=== PATIENT | female | born 2000 | race Two or more races ===

== ENCOUNTER 2019-01-12 16:34 | Emergency (ER) | payer BC ==
[~2019-01-12] VITALS: Ht 162.6 cm; Wt 54.4 kg
[2019-01-12] MEDS ORDERED: PNEU16DI2 (17:04)
== END 2019-01-12 21:03 | disposition home or self-care (01) ==
LOC: ER 16:34
DX: B34.9 Viral infection, unspecified (principal)

== ENCOUNTER 2020-12-30 13:00 | Inpatient (IN) | payer BC, OTHER ==
[~2020-12-30] VITALS: Ht 162.6 cm; Wt 72.1 kg
[~2020-12-30 13:00] MED LIST: PNEU16DI2
[2020-12-30] MEDS ORDERED: IRON236 MG PO (14:10)
[2020-12-30] MEDS ORDERED: PRENATAL TABLE1 EAC1 PO (14:10)
== END 2021-01-02 12:57 | disposition home or self-care (01) | DRG 833 ==
LOC: LDR 13:00 → OB/GYN 13:00
PROVIDERS: ADMIT Obstetrics & Gynecology; ATTEND Obstetrics & Gynecology
PROC: 4A1HXFZ Monitoring of Products of Conception, Cardiac Rhythm, External Approach (ICD-10-PCS; principal; 2020-12-30)
DX: O47.03 False labor before 37 completed weeks of gestation, third trimester (principal); Z3A.35 35 weeks gestation of pregnancy; Z20.822 Contact with and (suspected) exposure to COVID-19

== ENCOUNTER 2021-01-05 14:03 | Outpatient (CLI) | payer OTHER ==
[~2021-01-05 14:03] MED LIST changes: +IRON236 MG PO; +PRENATAL TABLE1 EAC1 PO
== END 2021-01-06 08:58 | disposition home or self-care (01) ==
LOC: OBS/DEL 14:03
PROVIDERS: ATTEND Obstetrics & Gynecology
DX: O26.843 Uterine size-date discrepancy, third trimester (principal); O36.8193 Decreased fetal movements, unspecified trimester, fetus 3

== ENCOUNTER 2021-01-19 06:07 | Inpatient (IN) | payer BC, OTHER ==
[~2021-01-19] VITALS: Ht 162.6 cm; Wt 72.6 kg
== END 2021-01-21 09:49 | disposition home or self-care (01) | DRG 807 ==
LOC: LDR 06:07 → OB/GYN 06:07
PROVIDERS: ADMIT Obstetrics & Gynecology; ATTEND Obstetrics & Gynecology
PROC: 10E0XZZ Delivery of Products of Conception, External Approach (ICD-10-PCS; principal; 2021-01-19)
PROC: 10907ZC Drainage of Amniotic Fluid, Therapeutic from Products of Conception, Via Natural or Artificial Opening (ICD-10-PCS; 2021-01-19)
PROC: 4A1HXFZ Monitoring of Products of Conception, Cardiac Rhythm, External Approach (ICD-10-PCS; 2021-01-19)
DX: O80 Encounter for full-term uncomplicated delivery (principal); Z37.0 Single live birth; Z3A.39 39 weeks gestation of pregnancy; Z20.822 Contact with and (suspected) exposure to COVID-19

== ENCOUNTER 2024-12-30 11:35 | Emergency (ER) | payer BC, OTHER ==
[~2024-12-30] VITALS: Ht 162.6 cm; Wt 63.5 kg
[2024-12-30] MEDS ORDERED: PRENATA CHEWAB1 EACH (11:58)
[2024-12-30] MEDS ORDERED: FAMOTIDINE/PF 20 MG/2 ML VIAL ONE (12:13)
[2024-12-30] MEDS ORDERED: ONDANSETRON HCL 2 MG/ML VIAL ONE (12:13)
[2024-12-30] MEDS ORDERED: ONDANSETRON HCL 2 MG/ML VIAL IV ONE (12:15)
[2024-12-30] MEDS ORDERED: 0.9 % SODIUM CHLORIDE 1,000 ML IV ONE (12:15)
[2024-12-30] MEDS ORDERED: FAMOtidine 10 MG/ML (4ML VIAL) IV ONE (12:15)
[2024-12-30] MEDS ORDERED: ACETAMINOPHEN 500 MG GEL..CAP PO ONE ×2 (12:41→13:15)
[2024-12-30 12:55] LABS: HEMATOCRIT 38.1 % (36.0-45.00); HEMOGLOBIN 13.4 g/dL (12.0-15.00); MEAN CELL VOLUME 88.2 fL (80.00-100.00); MEAN CORPUSCULAR HEMOGLOBIN 30.9 pg (27.00-32.0); PLATELET COUNT 233 K/uL (150-450); RED BLOOD COUNT 4.32 M/uL (4.00-6.00); RED CELL DISTRIBUTION WIDTH 12.9 % (11.5-14.5)
[2024-12-30 13:19] LABS: BILIRUBIN TOTAL 0.55 mg/dL (0.3-1.2); CALCIUM 9.3 mg/dL (8.5-10.1); CREATININE SERUM 0.59 mg/dL (0.55-1.02); GFR 124.19; GLOBULINA 4.3 G/DL (2.4-3.5); POTASSIUM 3.69 mEq/L (3.5-5.1); TOTAL PROTEIN 8.3 gm/dL (6.4-8.2)
[2024-12-30] MEDS ORDERED: PEPCID AC20 MG PO (14:45)
[2024-12-30] MEDS ORDERED: ZOFRAN8 MG PO (14:45)
== END 2024-12-30 15:02 | disposition home or self-care (01) ==
LOC: ER 11:37
PROVIDERS: General Practice
DX: R11.2 Nausea with vomiting, unspecified (principal); R19.7 Diarrhea, unspecified; R10.9 Unspecified abdominal pain; Z20.822 Contact with and (suspected) exposure to COVID-19; Z91.018 Allergy to other foods

== ENCOUNTER 2025-05-22 17:45 | Outpatient (CLI) | payer OTHER ==
[2025-05-22 16:54] VITALS: BP 112/70
[~2025-05-22 17:45] MED LIST changes: +PEPCID AC20 MG PO; +PRENATA CHEWAB1 EACH; +ZOFRAN8 MG PO
[2025-05-22] MEDS ORDERED: TERBUTALINE SULFATE 1 MG/ML AMPUL SUBCUTANEO SCH (18:00)
[2025-05-22] MEDS ORDERED: RINGERS SOLUTION,LACTATED 1,000 ML IV SCH (18:00)
[2025-05-22 18:23] LABS: URINE APPEARANCE Clear; URINE BILIRRUBIN Negative (NEGATIVE); URINE BLOOD Negative; URINE COLOR Yellow; URINE GLUCOSE Negative (NEGATIVE); URINE KETONE Trace (NEGATIVE); URINE LEUKOCYTE Moderate; URINE NITRATE Negative; URINE PROTEIN Negative (NEGATIVE); URINE UROBILINOGEN 1.0 E.U./dl
[2025-05-22 18:26] LABS: URINE BACTERIA 3151.0 uL (0.0-1933); URINE EPITHELIAL CELLS 86.9 uL (0.0-38.8); URINE WBC 66.0 uL (0.0-23.2)
[2025-05-22 18:27] LABS: BASO % 0.1 % (0.1-1.2); EOS # 0.00 (0.04-0.54); EOS % 0.0 % (0.7-7.0); LYMPH # 0.65 (1.18-3.74); LYMPH % 9.4 % (19.3-53.1); MEAN PLATELET VOLUME 11.10 fl (9.4-12.4); MONO # 0.77 (0.24-0.82); MONO % 11.1 % (4.7-12.5); NEUT # 5.46 (1.56-6.13); NEUT % 78.7 % (34.0-71.1); RED CELL DISTRIBUTION WIDTH 12.4 % (11.6-14.4)
[2025-05-22 18:38] LABS: URINE CAST 0.29 uL (0.0-1.40); URINE RBC 1.1 uL (0.0-20.8)
[2025-05-22 18:49] LABS: BUN CREA RATIO 14.0 (7.0-25.0); CREATININE SERUM 0.35 mg/dL (0.55-1.02); GFR 226.88; GLUCOSE FASTING 87.0 mg/dL (65-100); OSMOLALITY SERUM 278.0 MOSM/KG (275-295)
[2025-05-22] MEDS ORDERED: CEFAZOLIN SODIUM 1,000 MG VIAL IV SCH (20:00)
[2025-05-22] MEDS ORDERED: SOD FERRIC GLUC COMPLX/SUCROSE 62.5 MG in 0.9 % SODIUM CHLORIDE 50 ML IV SCH (21:00)
[2025-05-22 23:34] VITALS: BP 103/62
[2025-05-23 03:25] VITALS: BP 98/55
[2025-05-23 06:32] VITALS: BP 90/60; O2SAT 98
[2025-05-23 10:45] VITALS: BP 90/60
== END 2025-05-23 11:09 | disposition home or self-care (01) ==
LOC: OBS/DEL 17:45
PROVIDERS: ATTEND Obstetrics & Gynecology
DX: O26.892 Other specified pregnancy related conditions, second trimester (principal); O26.849 Uterine size-date discrepancy, unspecified trimester; O36.8199 Decreased fetal movements, unspecified trimester, other fetus; O60.00 Preterm labor without delivery, unspecified trimester; Z3A.27 27 weeks gestation of pregnancy

== ENCOUNTER 2025-07-23 17:38 | Outpatient (CLI) | payer OTHER ==
[2025-07-23 16:19] VITALS: BP 127/75
[~2025-07-23 17:38] MED LIST changes: +TERBUTALINE SULFATE 1 MG/ML AMPUL ONE
[2025-07-23] MEDS ORDERED: TERBUTALINE SULFATE 1 MG/ML AMPUL SUBCUTANEO SCH (17:45)
[2025-07-23] MEDS ORDERED: RINGERS SOLUTION,LACTATED 1,000 ML IV SCH (18:00)
[2025-07-23 18:14] LABS: BASO % 0.2 % (0.1-1.2); EOS # 0.05 (0.04-0.54); EOS % 0.6 % (0.7-7.0); LYMPH # 1.52 (1.18-3.74); LYMPH % 17.0 % (19.3-53.1); MEAN PLATELET VOLUME 11.00 fl (9.4-12.4); MONO # 0.62 (0.24-0.82); MONO % 6.9 % (4.7-12.5); NEUT # 6.68 (1.56-6.13); NEUT % 74.9 % (34.0-71.1); RED CELL DISTRIBUTION WIDTH 13.8 % (11.6-14.4); URINE APPEARANCE Turbid; URINE BILIRRUBIN Negative (NEGATIVE); URINE BLOOD Negative; URINE COLOR Yellow; URINE GLUCOSE Negative (NEGATIVE); URINE KETONE Trace (NEGATIVE); URINE LEUKOCYTE Negative; URINE NITRATE Negative; URINE PROTEIN Negative (NEGATIVE); URINE UROBILINOGEN 1.0 E.U./dl
[2025-07-23 18:16] LABS: URINE BACTERIA 11.9 uL (0.0-1933); URINE EPITHELIAL CELLS 6.3 uL (0.0-38.8); URINE RBC 10.1 uL (0.0-20.8); URINE WBC 14.3 uL (0.0-23.2)
[2025-07-23 18:17] LABS: URINE CAST 0.00 uL (0.0-1.40)
[2025-07-23] MEDS ORDERED: IRON18 M1 PO (18:29)
[2025-07-23 18:46] LABS: ALT/SGPT 13.0 U/L (12-78); AST/SGOT 13.0 U/L (15-37); BILIRUBIN TOTAL 0.4 mg/dL (0.3-1.2); BUN CREA RATIO 8.0 (7.0-25.0); CREATININE SERUM 0.38 mg/dL (0.55-1.02); GFR 204.71; GLOBULINA 3.5 G/DL (2.4-3.5); GLUCOSE FASTING 94.0 mg/dL (65-100); OSMOLALITY SERUM 281.0 MOSM/KG (275-295)
[2025-07-23 19:53] VITALS: BP 112/64
[2025-07-23 23:24] VITALS: BP 102/67
[2025-07-24 03:16] VITALS: BP 129/85
[2025-07-24 07:15] VITALS: BP 115/69
[2025-07-24] MEDS ORDERED: SOD FERRIC GLUC COMPLX/SUCROSE 62.5 MG/5 ML AMPUL IV ONE (08:37)
[2025-07-24] MEDS ORDERED: SOD FERRIC GLUC COMPLX/SUCROSE 125 MG in 0.9 % SODIUM CHLORIDE 100 ML IV SCH (09:00)
[2025-07-24 11:11] VITALS: BP 116/65; O2SAT 100
[2025-07-24 13:56] VITALS: BP 116/65
== END 2025-07-24 14:11 | disposition home or self-care (01) ==
LOC: OBS/DEL 17:38
PROVIDERS: ATTEND Obstetrics & Gynecology
DX: O26.893 Other specified pregnancy related conditions, third trimester (principal); R10.2 Pelvic and perineal pain; Z3A.35 35 weeks gestation of pregnancy

== ENCOUNTER 2025-08-12 10:29 | Inpatient (IN) | payer BC, OTHER ==
[~2025-08-12] VITALS: Ht 162.6 cm; Wt 75.7 kg
[2025-08-12 10:02] VITALS: BP 118/59
[~2025-08-12 10:29] MED LIST changes: +IRON18 M1 PO; -TERBUTALINE SULFATE 1 MG/ML AMPUL ONE
[2025-08-12] MEDS ORDERED: RINGERS SOLUTION,LACTATED 1,000 ML IV SCH (11:00)
[2025-08-12 11:13] LABS: BASO % 0.1 % (0.1-1.2); EOS # 0.03 (0.04-0.54); EOS % 0.4 % (0.7-7.0); LYMPH # 1.69 (1.18-3.74); LYMPH % 21.7 % (19.3-53.1); MEAN PLATELET VOLUME 11.90 fl (9.4-12.4); MONO # 0.51 (0.24-0.82); MONO % 6.5 % (4.7-12.5); NEUT # 5.52 (1.56-6.13); NEUT % 70.8 % (34.0-71.1); RED CELL DISTRIBUTION WIDTH 13.7 % (11.6-14.4)
[2025-08-12 11:13] LABS: URINE APPEARANCE Clear; URINE BILIRRUBIN Negative (NEGATIVE); URINE BLOOD Negative; URINE COLOR Yellow; URINE GLUCOSE Negative (NEGATIVE); URINE KETONE Negative (NEGATIVE); URINE LEUKOCYTE Small; URINE NITRATE Negative; URINE PROTEIN Negative (NEGATIVE); URINE UROBILINOGEN 0.2 E.U./dl
[2025-08-12 11:16] LABS: URINE BACTERIA 795.5 uL (0.0-1933); URINE EPITHELIAL CELLS 73.9 uL (0.0-38.8); URINE RBC 2.4 uL (0.0-20.8); URINE WBC 88.1 uL (0.0-23.2)
[2025-08-12 11:46] LABS: URINE CAST 0.00 uL (0.0-1.40)
[2025-08-12 15:24] VITALS: BP 132/72
[2025-08-12] MEDS ORDERED: AMPICILLIN SODIUM 2,000 MG VIAL IV ONE (17:00)
[2025-08-12 17:25] VITALS: BP 118/59
[2025-08-12 18:19] LABS: INR 0.96
[2025-08-12 18:24] LABS: ALT/SGPT 14.0 U/L (12-78); AST/SGOT 17.0 U/L (15-37); BILIRUBIN TOTAL 0.7 mg/dL (0.3-1.2); BUN CREA RATIO 12.0 (7.0-25.0); CREATININE SERUM 0.34 mg/dL (0.55-1.02); GFR 232.74; GLOBULINA 3.4 G/DL (2.4-3.5); GLUCOSE FASTING 65.0 mg/dL (65-100); OSMOLALITY SERUM 274.0 MOSM/KG (275-295)
[2025-08-12] MEDS ORDERED: MORPHINE SULFATE 4 MG/ML CARTRIDGE IV PRN (19:00)
[2025-08-12] MEDS ORDERED: AMPICILLIN SODIUM 1,000 MG VIAL IV SCH (21:00)
[2025-08-12 23:04] VITALS: BP 117/60
[2025-08-13 03:25] VITALS: BP 114/71
[2025-08-13] MEDS ORDERED: CHLORHEXIDINE GLUCONATE 120 ML BOTTLE TOP ONE (10:35)
[2025-08-13] MEDS ORDERED: ERYTHROMYCIN BASE OPHT 1GM EACH TUBE OP ONE (10:35)
[2025-08-13] MEDS ORDERED: OXYTOCIN 20 UNITS/1000ML RL PIGGYBAG IV ONE (10:35)
[2025-08-13] MEDS ORDERED: LIDOCAINE HCL 1% 10ML VIAL ONE (10:36)
[2025-08-13 13:34] VITALS: BP 119/72
[2025-08-13 16:17] VITALS: BP 128/76
[2025-08-13 16:58] LABS: BASO % 0.1 % (0.1-1.2); EOS # 0.00 (0.04-0.54); EOS % 0.0 % (0.7-7.0); LYMPH # 1.07 (1.18-3.74); LYMPH % 7.4 % (19.3-53.1); MEAN PLATELET VOLUME 12.20 fl (9.4-12.4); MONO # 0.59 (0.24-0.82); MONO % 4.1 % (4.7-12.5); NEUT # 12.79 (1.56-6.13); NEUT % 87.9 % (34.0-71.1); RED CELL DISTRIBUTION WIDTH 13.4 % (11.6-14.4)
[2025-08-13 23:52] VITALS: BP 119/79
[2025-08-14 08:14] VITALS: BP 115/76
[2025-08-14 16:31] VITALS: BP 116/76
[2025-08-15 00:36] VITALS: BP 119/75
[2025-08-15 08:40] VITALS: BP 124/79; O2SAT 100
== END 2025-08-15 14:18 | disposition home or self-care (01) | DRG 807 ==
LOC: OBS/DEL 10:29 → LDR 18:12 → OB/GYN 18:12 → LDR 08-13 01:39 → OB/GYN 08-13 11:34
PROVIDERS: ADMIT Obstetrics & Gynecology; ATTEND Obstetrics & Gynecology
PROC: 4A1HXCZ Monitoring of Products of Conception, Cardiac Rate, External Approach (ICD-10-PCS; 2025-08-12)
PROC: 10E0XZZ Delivery of Products of Conception, External Approach (ICD-10-PCS; principal; 2025-08-13)
DX: O80 Encounter for full-term uncomplicated delivery (principal); Z37.0 Single live birth; Z3A.39 39 weeks gestation of pregnancy

== ENCOUNTER 2025-09-30 11:00 | Day surgery (SDC) | payer OTHER ==
[2025-09-27 14:46] LABS: URINE APPEARANCE Clear; URINE BILIRRUBIN Negative (NEGATIVE); URINE BLOOD Moderate; URINE COLOR Dark Yellow; URINE GLUCOSE Negative (NEGATIVE); URINE KETONE Trace (NEGATIVE); URINE LEUKOCYTE Trace; URINE NITRATE Negative; URINE PROTEIN Negative (NEGATIVE); URINE UROBILINOGEN 1.0 E.U./dl
[2025-09-27 14:49] LABS: URINE EPITHELIAL CELLS 45.6 uL (0.0-38.8); URINE RBC 3.2 uL (0.0-20.8); URINE WBC 45.3 uL (0.0-23.2)
[2025-09-27 15:11] LABS: BASO % 0.3 % (0.1-1.2); EOS # 0.15 (0.04-0.54); EOS % 2.4 % (0.7-7.0); LYMPH # 2.57 (1.18-3.74); LYMPH % 41.2 % (19.3-53.1); MEAN PLATELET VOLUME 11.20 fl (9.4-12.4); MONO # 0.46 (0.24-0.82); MONO % 7.4 % (4.7-12.5); NEUT # 3.02 (1.56-6.13); NEUT % 48.4 % (34.0-71.1); RED CELL DISTRIBUTION WIDTH 11.5 % (11.6-14.4)
[2025-09-27 15:17] LABS: INR 1.06
[2025-09-27 15:26] LABS: ALT/SGPT 30.0 U/L (12-78); AST/SGOT 18.0 U/L (15-37); BILIRUBIN TOTAL 0.69 mg/dL (0.3-1.2); BUN CREA RATIO 14.0 (7.0-25.0); CREATININE SERUM 0.79 mg/dL (0.55-1.02); GFR 87.97; GLOBULINA 3.4 G/DL (2.4-3.5); GLUCOSE FASTING 82.0 mg/dL (65-100); OSMOLALITY SERUM 287.0 MOSM/KG (275-295)
[2025-09-27 15:35] LABS: URINE CAST 0.43 uL (0.0-1.40)
[~2025-09-30 11:00] MED LIST changes: +PRENATABS RX T1 EACH PO
[2025-09-30] MEDS ORDERED: POVIDONE-IODINE 118 ML BOTT TOP ONE (13:05)
[2025-09-30] MEDS ORDERED: CEFAZOLIN SODIUM 1,000 MG VIAL ONE (13:06)
[2025-09-30] MEDS ORDERED: SUGAMMADEX SODIUM 200 MG/2 ML VIAL IV ONE (16:03)
== END 2025-09-30 19:50 | disposition home or self-care (01) ==
LOC: CIR.AMB
PROVIDERS: ATTEND Obstetrics & Gynecology
DX: N70.91 Salpingitis, unspecified (principal); Z30.2 Encounter for sterilization; R10.20 Pelvic and perineal pain unspecified side; N73.6 Female pelvic peritoneal adhesions (postinfective)